=== PATIENT | male | born 1965 | race African-American/Black ===

== ENCOUNTER 2024-12-21 07:50 | Emergency (ER) | payer OTHER, SELFPAY ==
[2024-12-21 07:53] VITALS: BP 138/78
--- NOTE | 2024-12-21 08:01 | ED.GENMED ---
History of Present Illness
General
Chief Complaint: Musculo-Skeletal Complaint
Time Seen by Provider: 12/21/24 08:00
History of Present Illness
History of Present Illness:
TIME OF INITIAL ENCOUNTER: 8 AM
HPI: Patient presents with posterior neck discomfort. Last week, he was doing some exercises and then started having left lower paraspinal cervical/trapezius musculature pain. The pain worsens with attempted rotation of the cervical spine. He has
no symptoms into the arms. He drives a truck for living.
EXAM:
GENERAL: Well appearing in no distress
HEENT: Moist oral mucosa
C-SPINE: There is no midline C-spine tenderness, there is markedly decreased active range of motion into rotation bilaterally due to pain, there is some mild to moderate tenderness of the lower paraspinal cervical musculature/trapezius musculature
NEUROLOGIC: Excellent strength all extremities, no obvious coordination deficits, excellent upper extremity strength
PSYCHIATRIC: Appropriate mental status, normal insight and judgement
EXTREMITIES: Nontender, no edema, moves all extremities equally
SKIN: No rash, no lesions
NUMBER AND COMPLEXITY OF PROBLEMS ADDRESSED AT THE ENCOUNTER
� Chronic conditions affecting care: Has had hip replacement in the past and L3-4 spinal fusion, diverticular disease
� Acute Exacerbation and/or Progression of Chronic Illness: This is an acute problem
� Differential Diagnosis includes: trapezius strain, muscle spasm, cervical, paraspinal musculature pain, no bony tenderness to suggest cervical spine etiology of the bone
AMOUNT AND/OR COMPLEXITY OF DATA TO BE REVIEWED AND ANALYZED
� I performed an independent evaluation of and my interpretation is:
EKG:
CT:
X-rays:
Laboratory Studies:
Other:
� Review of other/old records: I reviewed records, the patient had spinal stenosis manage in [address] Bautista
� Clinical information was obtained by an independent historian: None needed
� Prescriptions/Medications Considered but not given:
� Further testing considered but not performed:
RISK OF COMPLICATIONS AND/OR MORBIDITY OR MORTALITY OF PATIENT MANAGEMENT
� Social determinants of health affecting care: Lives at home, drives a truck
� Discussion with other providers:
� Escalation of care including admission/observation vs risk of discharge considered: The patient has a nonfocal neurologic examination. Will try a dose of Toradol IM and prescribed Flexeril. He was instructed not to drive if
he takes Flexeril.
PROCEDURE NOTE: Muscle energy osteopathic manipulative therapy performed into rotation bilateral cervical spine with some improvement of range of motion
ANY OTHER UPDATES:
Past History
Past History
ED Past Medical History: None
ED Past Surgical History: Orthopedic
Patient has exhibited threatening behavior?: No
Social History
Tobacco: Non-smoker
Alcohol: None
Drug: None
Personal:
Living: with family
Employment: Employed
Family History
Family History: Other
Phy Exam
Physical Exam
Physical Exam:
See HPI
Course
Orders/Labs/Results
Orders:
Orders
12/21/24 08:15
Ketorolac [Toradol] 30 mg IM NOW STA
Vital Signs
Initial and Last Documented VS:
Initial Vital Signs
Temp Pulse Resp BP Pulse Ox
36.6 C 68 16 138/78 100
12/21/24 07:53 12/21/24 07:53 12/21/24 07:53 12/21/24 07:53 12/21/24 07:53
Last Documented Vital Signs
Temp Pulse Resp BP Pulse Ox
36.6 C 68 16 138/78 100
12/21/24 07:53 12/21/24 07:53 12/21/24 07:53 12/21/24 07:53 12/21/24 07:53
*Critical Care Note
Total Time (30-74mins, 75-104mins- exclusive of procedures): Not Applicable
ED Attending Note
-
Portions of this chart may have been created with voice recognition software.� Occasional wrong word or��sound alike� substitutions may have occurred due to the inherent limitations of voice recognition software.
Discharge Plan
Departure
Patient Disposition: Home (Routine Discharge)
Date of Disposition: 12/21/24
Time of Disposition: 08:15
Patient with high blood pressure during this ER visit?: Yes
Discharge Problem:
Cervical paraspinal muscle spasm
Instructions: Muscle Strain (DC), BLOOD PRESSURE
Prescriptions:
New
cyclobenzaprine 10 mg tablet
10 mg PO TID PRN (Reason: muscle spasm) Qty: 20 0RF
No Action
multivitamin Tablet
1 tab PO DAILY
sildenafil [Viagra] 100 mg Tablet
50 mg PO PRN PRN (Reason: ED)
naproxen sodium [Aleve] 220 mg Tablet
220 - 440 mg PO PRN PRN (Reason: Pain)
mupirocin 2 % ointment
1 applic topical BID Qty: 1 0RF
Patient Comments:
started treatment on saturday01/06/23 in am and was taking BID. last took at home 01/09/23 in am
dexamethasone 4 mg tablet
4 mg PO BID Qty: 6 0RF
Rx Instructions:
take with food
post-op use only
famotidine 20 mg tablet
20 mg PO HS Qty: 30 0RF
meloxicam 15 mg tablet
15 mg PO DAILY Qty: 14 0RF
Rx Instructions:
take with food
post-op
oxycodone 5 mg tablet
5 - 10 mg PO Q6HPRN PRN (Reason: 1 tab moderate-2 tabs severe pain) Qty: 30 0RF
Rx Instructions:
Dx TKA
ongoing therapy
*POST-OP USE
aspirin 325 mg tablet
325 mg PO DAILY Qty: 1 0RF
Rx Instructions:
Take with food
docusate sodium [Colace] 100 mg capsule
100 mg PO BID Qty: 1 0RF
sennosides [Senokot] 8.6 mg tablet
17.2 mg PO BID Qty: 2 0RF
acetaminophen [Tylenol] 325 mg capsule
650 mg PO QID Qty: 2 0RF
magnesium hydroxide [Milk of Magnesia] 400 mg/5 mL suspension
30 ml PO HS PRN (Reason: Constipation) Qty: 1 0RF
Referrals:
Ady Carter MD [Family Provider, Family Practice]
Activity Restrictions/Additional Instructions:
I sent a prescription for Flexeril (cyclobenzaprine) to your pharmacy. This may help with your discomfort. It is somewhat sedating so you should not drive after you take this medication. Continue to take NSAIDs such as Aleve. Return here if
worse or other concerns.
Interventions
Interventions:
*Risk Screen - Suicide Last Done: 12/21/24 07:54
*Neglect/Abuse Screening Last Done: 12/21/24 07:54
Discharge Date and Time
Print Language: [place]
[2024-12-21] MEDS: TORADOL 30 MG IM (08:19)
[2024-12-21 08:35] VITALS: BP 126/88
== END 2024-12-21 08:50 | disposition home or self-care (01) ==
LOC: EMR 07:50
PROVIDERS: EMERGENCY PHYSICIAN Emergency Medicine; FAMILY PHYSICIAN Family Medicine
DX: M62.838 Other muscle spasm (principal)
CPT/HCPCS: 99282; 96372